=== PATIENT | male | born 1995 | race Caucasian/White ===

== ENCOUNTER 2025-09-11 21:54 | Emergency (ER) | payer OTHER ==
[~2025-09-11] VITALS: Ht 182.9 cm; Wt 65.8 kg
[2025-09-11 22:09] VITALS: BP 115/72
[2025-09-11] MEDS ORDERED: ACETAMINOPHEN 500 MG TABLET ONE (22:51)
[2025-09-11] MEDS ORDERED: IBUPROFEN 600 MG TABLET ONE (22:51)
[2025-09-11] MEDS: IBUPROFEN 600 MG TABLET PO ONE (23:01)
[2025-09-11] MEDS: ACETAMINOPHEN 500 MG TABLET PO ONE (23:01)
[2025-09-11] MEDS ORDERED: NAPR-1194 PO (23:59)
[2025-09-11] MEDS ORDERED: CYCL10TA24 PO (23:59)
[2025-09-11] MEDS ORDERED: DOXY-461 PO (23:59)
[2025-09-11] MEDS ORDERED: METR-147 PO (23:59)
[2025-09-12] LABS: *BILIRUBIN,URIN NEGATIVE (NEGATIVE); *BLOOD, URINE NEGATIVE (NEGATIVE); *CLARITY,URINE CLEAR (CLEAR); *COLOR,URINE YELLOW (YELLOW); *KETONES,URINE TRACE (NEGATIVE); *PROTEIN,URINE NEGATIVE (NEGATIVE); *UROBILINOGEN,URINE 0.2 E.U./dl (NORMAL); LEUKOCYTE ESTERASE ,URINE NEGATIVE (NEGATIVE); NITRITE, URINE NEGATIVE (NEGATIVE); UGLUCOSE NEGATIVE (NEGATIVE)
[2025-09-12] MEDS ORDERED: CEFTRIAXONE 500 MG VIAL ONE (00:24)
[2025-09-12] MEDS ORDERED: LIDOCAINE HCL 1% 20 ML VIAL ONE (00:25)
[2025-09-12] MEDS: CEFTRIAXONE 500 MG VIAL IM ONE (00:28)
[2025-09-12 00:40] VITALS: TEMP 98
[2025-09-12 01:04] VITALS: BP 119/78; O2SAT 98
[2025-09-13 15:09] LABS: *CHLAMYDIA NAA Negative (Negative); *GC NAA Negative (Negative); *TRIC.VAG. NAA Negative (Negative)
== END 2025-09-12 01:06 | disposition home or self-care (01) ==
LOC: ER 21:54
DX: M54.2 Cervicalgia (principal); S23.3XXA Sprain of ligaments of thoracic spine, initial encounter; S16.1XXA Strain of muscle, fascia and tendon at neck level, initial encounter; S29.012A Strain of muscle and tendon of back wall of thorax, initial encounter; S33.5XXA Sprain of ligaments of lumbar spine, initial encounter; S76.011A Strain of muscle, fascia and tendon of right hip, initial encounter; N34.2 Other urethritis; J45.909 Unspecified asthma, uncomplicated; V43.52XA Car driver injured in collision with other type car in traffic accident, initial encounter; Y93.89 Activity, other specified; Y92.410 Unspecified street and highway as the place of occurrence of the external cause; Y99.9 Unspecified external cause status
CPT/HCPCS: 99284; 81003; 72080; 73502; 87491; 96372; J0696; J3490; A4606; A4663; A9150